=== PATIENT | male | born 1985 | race Caucasian/White ===

== ENCOUNTER 2019-09-11 06:38 | Emergency (ER) | payer SELFPAY ==
--- NOTE | 2019-09-11 07:08 | EDM.PDOC ---
ED HPI GENERAL MEDICAL PROBLEM - General Chief Complaint: Lower Extremity Injury/Pain Stated Complaint: FOOT PROBLEM RIGHT Time Seen by Provider: 09/11/19 06:55 Source of Information: Reports: Patient History Limitations: Reports: No Limitations - History of Present Illness INITIAL COMMENTS - FREE TEXT/NARRATIVE: The patient presents with right foot pain and swelling. This started a few days ago. He denies any injury. He has redness to the right lateral foot with pain upon palpation and edema that extends up his ankle. He has no fever or chills. Onset: Gradual Duration: Day(s): Location: Reports: Lower Extremity, Right Quality: Reports: Sharp Severity: Moderate Improves with: Reports: None Worsens with: Reports: None Associated Symptoms: Reports: No Other Symptoms Right Foot Pain Score (Numeric/FACES): 8 - Related Data Home Meds: Home Meds cephALEXin [Keflex] 500 mg PO QID #40 capsule 09/11/19 [Rx] Past Medical History - Past Health History Medical/Surgical History: Denies Medical/Surgical History Social & Family History - Tobacco Use Smoking Status *Q: Current Every Day Smoker Years of Tobacco use: 15 Packs/Tins Daily: 1 Review of Systems - Review of Systems Review Of Systems: See Below Constitutional: Reports: No Symptoms Eyes: Reports: No Symptoms Ears: Reports: No Symptoms Nose: Reports: No Symptoms Mouth/Throat: Reports: No Symptoms Respiratory: Reports: No Symptoms Cardiovascular: Reports: No Symptoms GI/Abdominal: Reports: No Symptoms Genitourinary: Reports: No Symptoms Musculoskeletal: Reports: Other (Right foot pain and swelling) ED EXAM, GENERAL - Physical Exam Exam: See Below Exam Limited By: No Limitations General Appearance: Alert, No Apparent Distress Ears: Normal External Exam Nose: Normal Inspection Head: Atraumatic, Normocephalic Neck: Normal Inspection Respiratory/Chest: No Respiratory Distress, Lungs Clear, Normal Breath Sounds Cardiovascular: Regular Rate, Rhythm, No Edema, No Murmur GI/Abdominal: Soft, Non-Tender, No Organomegaly, No Mass Extremities: Other (Erythema, edema and pain upon palpation to the right lateral foot. Good pulses and sensation distally.) Course - Vital Signs Last Recorded V/S: Last Vital Signs Temp 97.4 F 09/11/19 06:46 Pulse 94 09/11/19 06:46 Resp 16 09/11/19 06:46 BP 114/87 05/21/20 06:46 Pulse Ox 97 09/11/19 06:46 - Orders/Labs/Meds Orders: Active Orders 24 hr Category Date Time Status Foot 2V Rt [CR] Stat Exams 09/11/19 07:04 Taken - Re-Assessments/Exams Free Text/Narrative Re-Assessment/Exam: 09/11/19 07:08 I have ordered an x-ray of his foot. 09/11/19 07:51 The x-ray looks good. I will get him on some keflex. Departure - Departure Time of Disposition: 07:55 Disposition: Home, Self-Care 01 Condition: Good Clinical Impression: Cellulitis of right foot - Discharge Information *PRESCRIPTION DRUG MONITORING PROGRAM REVIEWED*: Not Applicable *COPY OF PRESCRIPTION DRUG MONITORING REPORT IN PATIENT CHARMAINE: Not Applicable Prescriptions: cephALEXin [Keflex] 500 mg PO QID #40 capsule Referrals: Tiffany Buck, [facility] [Nurse Practitioner] - 1 Week Forms: ED Department Discharge Additional Instructions: Take the keflex 4 times per day for 10 days. Try to elevate your leg as much as you can for 2 days. Put warm compresses on your foot 2 to 3 times per day. Take tylenol or motrin for pain. The redness may get worse for 24 to 48 hours but after that it should start to look better. If you do not see an improvement in 3 days follow up here or see Tiffany Buck in the clinic. Sepsis Event Note - Evaluation Sepsis Screening Result: No Definite Risk - Focused Exam Vital Signs: Vital Signs Temp Pulse Resp BP Pulse Ox 09/11/19 06:46 97.4 F 94 16 114/87 97 Date Exam was Performed: 09/11/19 Time Exam was Performed: 07:51 - My Orders Last 24 Hours: My Active Orders 09/11/19 07:04 Foot 2V Rt [CR] Stat - Assessment/Plan Last 24 Hours: My Active Orders 09/11/19 07:04 Foot 2V Rt [CR] Stat
--- NOTE | 2019-09-11 09:01 | CR ---
Right foot: 3 views of the right foot were obtained. Comparison: No prior foot exam is available. Small spur noted at the attachment of the Achilles tendon to the calcaneus. Mild soft tissue swelling is noted within the dorsum of the foot. Joint spaces are fairly well preserved. No discrete fracture or other bony abnormality is appreciated. Impression: 1. Calcaneal spur. 2. Soft tissue swelling. 3. I see no additional abnormality on this 3 view right foot exam. Diagnostic code #2 This report was dictated in MDT
== END 2019-09-11 08:12 | disposition home or self-care (01) ==
LOC: JD.ED 06:38
DX: L03.115 Cellulitis of right lower limb (principal); F17.210 Nicotine dependence, cigarettes, uncomplicated
CPT/HCPCS: 73620-26-RT; 73620-RT; 99283-25